=== PATIENT | female | born 1990 | race Caucasian/White ===

== ENCOUNTER 2022-09-26 11:31 | Emergency (ER) | payer OTHER ==
[~2022-09-26] VITALS: Ht 154.9 cm; Wt 79.4 kg
[2022-09-26 11:46] VITALS: BP 120/60
[2022-09-26 12:13] LABS: BASOPHILS % (AUTO) 0.5 % (0.0-2.0); EOSINOPHILS # (AUTO) 0.1 K/uL (0-0.4); EOSINOPHILS % (AUTO) 1.8 % (0.0-4.0); HEMATOCRIT 34.6 % (36-48); HEMOGLOBIN 11.4 g/dL (12.0-16.0); LYMPHOCYTES # (AUTO) 1.2 K/uL (2.5-16.5); LYMPHOCYTES % (AUTO) 17.7 % (20.5-51.1); MEAN CORPUSCULAR HEMOGLOBIN 29 pg (27-31); MEAN CORPUSCULAR HGB CONC 33 g/dL (33-37); MEAN CORPUSCULAR VOLUME 87.2 fL (80-94); MONOCYTES # (AUTO) 0.4 K/uL (0.8-1.0); MONOCYTES % (AUTO) 6.2 % (1.7-9.3); NEUTROPHILS # (AUTO) 4.9 K/uL (1.8-7.7); NEUTROPHILS % (AUTO) 73.8 % (42.2-75.2); PLATELET COUNT (AUTO) 272 K/uL (140-450); RED BLOOD CELL COUNT(AUTO) 3.97 MIL/uL (4.20-5.40); RED CELL DISTRIBUTION WIDTH 15.3 % (11.6-13.7); WHITE BLOOD COUNT (AUTO) 6.7 K/uL (4.8-10.8)
[2022-09-26 12:46] LABS: ALBUMIN 3.4 g/dL (3.4-5.0); ANION GAP 12.2 (8-16); CARBON DIOXIDE 26.7 mmol/L (21-32); CREATININE 0.7 mg/dL (0.6-1.3); POTASSIUM 3.9 mmol/L (3.5-5.1); TOTAL BILIRUBIN 0.4 mg/dL (0.0-1.0)
--- NOTE | 2022-09-26 14:10 | NUR ---
PT AMBULATED TO BED 02
--- NOTE | 2022-09-26 14:11 | NUR ---
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 PT STATES URINE AND LAB COMPLETE. PENDING CT. IV TO BE ESTABLISHED BY STUDENT RN. COMFORT MEASURES AND SUPPORTIVE CARE INITIATED. POST 4 WEEKS. SEEN BY OB FOR SAME COMPLAINT. INSTRUCTED TO COME TO ED IF S/SX WORSEN. PT DELIVERED AT [facility], ELECTS TO BE SEEN AT [facility]. TO CONTINUE PLAN OF CARE.
[2022-09-26 14:34] LABS: APPEARANCE,URINE CLEAR (CLEAR); BILIRUBIN,URINE NEGATIVE (NEGATIVE); BLOOD, URINE TRACE-I (NEGATIVE); COLOR,URINE YELLOW (YELLOW); LEUKOCYTE ESTERASE ,URINE NEGATIVE (NEGATIVE); NITRITE, URINE NEGATIVE (NEGATIVE); UGLUCOSE NEGATIVE (NEGATIVE)
--- NOTE | 2022-09-26 14:48 | NUR ---
TO CT VIA [facility]
[2022-09-26 15:47] LABS: RBC,URINE 0-5 /HPF (0-5)
[2022-09-26 15:48] LABS: WBC,URINE NONE SEEN /HPF (0-5)
[2022-09-26 16:00] VITALS: BP 99/55
[2022-09-26] MEDS ORDERED: KETOROLAC 15 MG/ML VIAL IM ONE (16:00)
[2022-09-26] MEDS ORDERED: KETOROLAC 15 MG/ML VIAL ONE (16:05)
[2022-09-26] MEDS ORDERED: CEPH-588 PO (16:12)
--- NOTE | 2022-09-26 16:26 | NUR ---
PT REMAINED STABLE THROUGHOUT ED COURSE. VERB UNDERSTANDING OF ACI. TO F/U W/ OB AND PMD. NO ADR. AMBULATES TO LOBBY W/ STEADY GAIT.
== END 2022-09-26 16:25 | disposition home or self-care (01) ==
LOC: MED 11:31
DX: O86.20 Urinary tract infection following delivery, unspecified (principal); Z98.890 Other specified postprocedural states
CPT/HCPCS: 36415; 74176; 80053; 81001; 81025; 83690; 85025; 96372; 99285; J1885

== ENCOUNTER 2023-02-05 23:25 | Emergency (ER) | payer OTHER ==
[~2023-02-05] VITALS: Ht 144.8 cm; Wt 81.2 kg
[~2023-02-05 23:25] MED LIST: CEPH-588 PO
[2023-02-06 00:18] VITALS: BP 131/85; PULSE 98; RESP 16; TEMP 97.4; O2SAT 100
[2023-02-06] MEDS ORDERED: ACET-8905 PO (13:14)
[2023-02-06] MEDS ORDERED: FAMO-90 PO (13:14)
[2023-02-06] MEDS ORDERED: ONDA-188 PO (13:14)
== END 2023-02-06 01:45 | disposition left against medical advice (07) ==
LOC: MED 23:25
DX: M54.9 Dorsalgia, unspecified (principal); Z53.21 Procedure and treatment not carried out due to patient leaving prior to being seen by health care provider
CPT/HCPCS: 99281

== ENCOUNTER 2023-02-06 08:52 | Emergency (ER) | payer OTHER ==
[~2023-02-06] VITALS: Ht 157.5 cm; Wt 75.7 kg
[2023-02-06 09:13] VITALS: BP 112/66; PULSE 54; RESP 17; TEMP 98; O2SAT 98
[2023-02-06] MEDS ORDERED: KETOROLAC 30 MG/ML VIAL IVP ONE (10:20)
[2023-02-06] MEDS ORDERED: ONDANSETRON 4 MG/2 ML VIAL IVP ONE (10:20)
[2023-02-06] MEDS ORDERED: KETOROLAC 30 MG/ML VIAL ONE (12:10)
[2023-02-06] MEDS ORDERED: ONDANSETRON 4 MG/2 ML VIAL ONE (12:10)
[2023-02-06 12:11] LABS: BASOPHILS % (AUTO) 0.5 % (0.0-2.0); EOSINOPHILS # (AUTO) 0.1 K/uL (0-0.4); EOSINOPHILS % (AUTO) 1.7 % (0.0-4.0); HEMOGLOBIN 12.4 g/dL (12.0-16.0); LYMPHOCYTES # (AUTO) 1.9 K/uL (2.5-16.5); LYMPHOCYTES % (AUTO) 27.5 % (20.5-51.1); MEAN CORPUSCULAR HEMOGLOBIN 29 pg (27-31); MEAN CORPUSCULAR HGB CONC 34 g/dL (33-37); MEAN CORPUSCULAR VOLUME 87.4 fL (80-94); MONOCYTES # (AUTO) 0.5 K/uL (0.8-1.0); MONOCYTES % (AUTO) 7.2 % (1.7-9.3); NEUTROPHILS # (AUTO) 4.5 K/uL (1.8-7.7); NEUTROPHILS % (AUTO) 63.1 % (42.2-75.2); PLATELET COUNT (AUTO) 287 K/uL (140-450); RED BLOOD CELL COUNT(AUTO) 4.23 MIL/uL (4.20-5.40); RED CELL DISTRIBUTION WIDTH 13.8 % (11.6-13.7); WHITE BLOOD COUNT (AUTO) 7.1 K/uL (4.8-10.8)
[2023-02-06 12:42] LABS: ALBUMIN 3.6 g/dL (3.4-5.0); ANION GAP 10.7 (8-16); CALCIUM 8.2 mg/dL (8.5-10.1); CARBON DIOXIDE 26.4 mmol/L (21-32); CREATININE 0.6 mg/dL (0.6-1.3); POTASSIUM 4.1 mmol/L (3.5-5.1); TOTAL BILIRUBIN 0.4 mg/dL (0.0-1.0)
[2023-02-06] MEDS ORDERED: FAMO-90 PO (13:14)
[2023-02-06] MEDS ORDERED: ONDA-188 PO (13:14)
[2023-02-06] MEDS ORDERED: ACET-8905 PO (13:14)
[2023-02-06 13:28] VITALS: BP 112/64; PULSE 74; RESP 17; O2SAT 98
== END 2023-02-06 13:29 | disposition home or self-care (01) ==
LOC: MED 08:52
DX: K80.20 Calculus of gallbladder without cholecystitis without obstruction (principal); R11.0 Nausea; R19.7 Diarrhea, unspecified; Z79.899 Other long term (current) drug therapy
CPT/HCPCS: 36415; 76705; 80053; 81002; 81025; 83690; 85025; 96374; 96375; 99285; J1885; J2405; Q0092